=== PATIENT | female | born 1990 | race Asian ===

== ENCOUNTER 2019-05-27 14:40 | Outpatient (CLI) | payer BC ==
[2019-05-27 15:54] LABS: BASOPHILS # (AUTO) 0.02 x10^3/uL (0-0.1); BASOPHILS % (AUTO) 0 % (0-1); EOSINOPHILS # (AUTO) 0.15 x10^3/uL (0-0.4); EOSINOPHILS % (AUTO) 2 % (1-7); LYMPHOCYTES # (AUTO) 1.44 x10^3/uL (1-3.4); LYMPHOCYTES % (AUTO) 20 % (22-44); MD NO; MEAN CORPUSCULAR HEMOGLOBIN 30.3 pg (27.0-34.8); MEAN CORPUSCULAR HGB CONC 33.7 g/dL (32.4-35.8); MEAN CORPUSCULAR VOLUME 90.1 fL (80-100); MEAN PLATELET VOLUME 7.8 fL (7.4-10.4); MONOCYTES # (AUTO) 0.45 x10^3/uL (0.2-0.8); MONOCYTES % (AUTO) 6 % (2-9); NEUTROPHILS # (AUTO) 5.16 x10^3/uL (1.8-6.8); NEUTROPHILS % (AUTO) 72 % (42-75); PLATELET COUNT 316 x10^3/uL (130-400); RED BLOOD COUNT 4.91 x10^6/uL (3.82-5.3); RED CELL DISTRIBUTION WIDTH 12.7 % (9.6-15.2)
[2019-05-27 15:56] LABS: ALANINE AMINOTRANSFERASE 19 U/L (12-78); ANION GAP 6 mmol/L (5-15); CALCIUM 8.2 mg/dL (8.5-10.1); CHLORIDE 108 mmol/L (98-107)
[2019-05-27 16:05] LABS: ALKALINE PHOSPHATASE 74 U/L (45-117); BILIRUBIN,TOTAL 0.4 mg/dL (0.2-1.0); CREATININE 0.74 mg/dL (0.55-1.02); T4 (THYROXINE) 12.7 mcg/dL (4.8-13.9); TOTAL PROTEIN 7.6 g/dL (6.4-8.2)
== END 2019-05-27 23:59 | disposition home or self-care (01) ==
LOC: RAD 14:40
PROVIDERS: ATTEND Nurse Practitioner
DX: E04.1 Nontoxic single thyroid nodule (principal)
CPT/HCPCS: 36415; 71046; 76536; 80053; 83615; 84436; 84443; 84481; 84550; 85025; 86376

== ENCOUNTER → 2019-07-26 | Outpatient (CLI) | payer BC ==
[~2019-07-26] MED LIST: LIDOCAINE-MPF 1%, 5ML ONE
== END | disposition home or self-care (01) ==
LOC: RAD 12:05
PROVIDERS: ATTEND Otolaryngology
DX: D49.7 Neoplasm of unspecified behavior of endocrine glands and other parts of nervous system (principal)
CPT/HCPCS: 10005; 88173

== ENCOUNTER → 2019-10-12 | Outpatient (CLI) | payer BC | END | disposition home or self-care (01) | LOC: RAD 12:28 | PROVIDERS: ATTEND Nurse Practitioner Family | DX: R10.0 Acute abdomen (principal) | CPT/HCPCS: 76700 ==